=== PATIENT | male | born 1990 | race Two or more races ===

== ENCOUNTER 2017-10-24 19:19 | Emergency (ER) | payer SELFPAY ==
[~2017-10-24] VITALS: Ht 172.7 cm; Wt 99.8 kg
[2017-10-24 19:50] VITALS: BP 120/75
[2017-10-24] MEDS ORDERED: IBUPROFEN 800 MG TAB PO ONE (21:00)
== END 2017-10-24 21:55 | disposition home or self-care (01) ==
LOC: ER 19:19
DX: S52.124A Nondisplaced fracture of head of right radius, initial encounter for closed fracture (principal); M25.429 Effusion, unspecified elbow; W18.39XA Other fall on same level, initial encounter; Y93.23 Activity, snow (alpine) (downhill) skiing, snowboarding, sledding, tobogganing and snow tubing; Y92.89 Other specified places as the place of occurrence of the external cause; Y99.8 Other external cause status
CPT/HCPCS: 29105; 29125; 73080

== ENCOUNTER 2018-07-03 01:40 | Emergency (ER) | payer OTHER ==
[~2018-07-03] VITALS: Ht 170.2 cm; Wt 97.5 kg
[2018-07-03 05:26] VITALS: BP 107/53
== END 2018-07-03 03:38 | disposition home or self-care (01) ==
LOC: ER 01:40
DX: S00.83XA Contusion of other part of head, initial encounter (principal); Y08.89XA Assault by other specified means, initial encounter; Y93.89 Activity, other specified; Y99.8 Other external cause status; Y92.89 Other specified places as the place of occurrence of the external cause
CPT/HCPCS: 70450; 70486